=== PATIENT | female | born 1990 | race American Indian/Alaskan Native ===

== ENCOUNTER 2018-07-21 06:35 | Outpatient (CLI) | payer MEDICAID ==
[2018-07-21] MEDS ORDERED: LACTATED RINGERS 500 ML IV ONE (08:22)
[2018-07-21 08:57] LABS: Bilirubin,Urine NEG (Negative); Blood,Urine NEG (Negative); Color,Urine Yellow (Yellow); Mucus,Urine FEW /HPF; Protein,Urine <15 mg/dL mg/dL (Negative); Urobilinogen,Urine < 2.0 mg/dL (<2.0)
[2018-07-23 11:37] VITALS: BP 107/60
== END 2018-07-21 09:10 | disposition home or self-care (01) ==
LOC: TRG 06:35
PROVIDERS: ATTEND Obstetrics & Gynecology
DX: O42.913 Preterm premature rupture of membranes, unspecified as to length of time between rupture and onset of labor, third trimester (principal); Z3A.31 31 weeks gestation of pregnancy
CPT/HCPCS: 59025; 81001